=== PATIENT | male | born 2005 | race Caucasian/White ===

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

== ENCOUNTER 2024-01-09 15:30 | Emergency (ER) | payer MEDICAID ==
[~2024-01-09] VITALS: Ht 180.3 cm; Wt 87.7 kg
[2024-01-09] MEDS: HYDROcodone/acetaminophen 10/325mg tab PO ONE (16:35)
[2024-01-09] MEDS ORDERED: HYDR-3965 PO (17:28)
[2024-01-09] MEDS ORDERED: AMOX-117 PO (17:28)
[2024-01-09 17:33] VITALS: BP 120/66; PULSE 68; RESP 16; TEMP 98.1; O2SAT 99
== END 2024-01-09 17:36 | disposition home or self-care (01) ==
LOC: ER 15:31
DX: S01.501A Unspecified open wound of lip, initial encounter (principal); F41.9 Anxiety disorder, unspecified; F32.A Depression, unspecified; W19.XXXA Unspecified fall, initial encounter; Y93.89 Activity, other specified; Y92.89 Other specified places as the place of occurrence of the external cause; Y99.8 Other external cause status
CPT/HCPCS: 70450; 70486; 99284; A6449

== ENCOUNTER 2024-11-28 20:51 | Emergency (ER) | payer MEDICAID, OTHER ==
[~2024-11-28] VITALS: Ht 182.9 cm; Wt 55.7 kg
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
[2024-11-28] MEDS ORDERED: NO HOME MEDS (21:29)
[2024-11-28] MEDS: morphine 4 MG/ML inj SYRINge IV ONE (21:35)
[2024-11-28] MEDS: TETanus/Pertussis (Acell)/Diphther VAC/PF (Tdap-Adult) 0.5ml syringe IMVAC ONE (21:35)
[2024-11-28] MEDS ORDERED: iohexol 300mg/ml 100ml inj. ONE (21:35)
--- NOTE | 2024-11-28 21:35 | ELECTROCARDIOGRAPH REPORT ---
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
[2024-11-28 21:42] LABS: BASOPHILS # (AUTO) 0.1 X10'3 (0-0.2); BASOPHILS % (AUTO) 0.8 % (0-1); EOSINOPHILS # (AUTO) 0.1 X10'3 (0-0.9); EOSINOPHILS % (AUTO) 0.4 % (0-6); HEMATOCRIT 44.6 % (42.0-52.0); LYMPHOCYTES # (AUTO) 3.3 X10'3 (1.1-4.8); LYMPHOCYTES % (AUTO) 24.7 % (21-51); MEAN CORPUSCULAR HEMOGLOBIN 28.6 PG (27.0-31.0); MEAN CORPUSCULAR HGB CONC 33.6 g/dL (33.0-36.5); MEAN PLATELET VOLUME 7.9 FL (7.4-10.4); MONOCYTES # (AUTO) 0.7 X10'3 (0-0.9); MONOCYTES % (AUTO) 5.6 % (2-12); NEUTROPHILS # (AUTO) 9.1 X10'3 (1.8-7.7); NEUTROPHILS % (AUTO) 68.5 % (42-75); RED BLOOD COUNT 5.25 X10'6 (4.70-6.10); RED CELL DISTRIBUTION WIDTH 13.6 % (11.5-14.5); WHITE BLOOD COUNT 13.2 X10'3 (4.5-11.0)
[2024-11-28 21:51] LABS: ALANINE AMINOTRANSFERASE 21 U/L (12-78); ALBUMIN/GLOBULIN RATIO 1.1 (1.1-1.5); ALKALINE PHOSPHATASE 84 IU/L (20-180); ANION GAP 13 (8-16); ASPARTATE AMINO TRANSFERASE 16 U/L (10-37); BILIRUBIN,TOTAL 0.7 MG/DL (0.1-1.0); BLOOD UREA NITROGEN 13 MG/DL (7-18); BUN/CREATININE RATIO 12.6 (10.0-20.0); CALCIUM 9.7 MG/DL (8.5-10.1); CHLORIDE 105 MMOL/L (99-107); CREATINE KINASE 90 U/L (39-308); CREATININE 1.03 MG/DL (0.60-1.10); GLUCOSE 108 MG/DL (70-104); LIPASE 18 U/L (16-77); MAGNESIUM 1.9 MG/DL (1.5-2.4); POTASSIUM 3.5 MMOL/L (3.5-5.1); SODIUM 142 MMOL/L (135-145); TOTAL CARBON DIOXIDE 23.8 MMOL/L (24-32); TOTAL PROTEIN 7.8 G/DL (6.4-8.2); eCRCL 90 ML/MIN; eGFR > 90 ML/MIN
[2024-11-28 21:55] LABS: ETHANOL < 10 MG/DL (<10)
[2024-11-28 21:56] LABS: PLATELET COUNT 260 X10'3 (140-440)
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
[2024-11-28] MEDS: fentaNYL/PF 50MCG/1 ML 2ML syringe IV ONE (23:57)
[2024-11-29] MEDS: bacitracin 15gm ointment TP ONE (00:12)
[2024-11-29 00:48] VITALS: BP 128/64; PULSE 92; RESP 16; TEMP 98; O2SAT 100
== END 2024-11-29 00:50 | disposition home or self-care (01) ==
LOC: ER 20:52
DX: S06.0XAA Concussion with loss of consciousness status unknown, initial encounter (principal); S80.02XA Contusion of left knee, initial encounter; S80.01XA Contusion of right knee, initial encounter; S00.81XA Abrasion of other part of head, initial encounter; S80.211A Abrasion, right knee, initial encounter; S80.212A Abrasion, left knee, initial encounter; G89.11 Acute pain due to trauma; S50.312A Abrasion of left elbow, initial encounter; S50.311A Abrasion of right elbow, initial encounter; X58.XXXA Exposure to other specified factors, initial encounter; Y93.55 Activity, bike riding; Y92.89 Other specified places as the place of occurrence of the external cause; Y99.8 Other external cause status
CPT/HCPCS: 70450; 70486; 71260; 74177; 80053; 80320; 82550; 83690; 83735; 84484; 85025; 90471; 90715; 93005; 96374; 96375; 99285; J2270; J3010; Q9967